=== PATIENT | male | born 1990 | race Caucasian/White ===

== ENCOUNTER 2023-11-11 16:07 | Emergency (ER) | payer SELFPAY ==
--- NOTE | ~2023-11-11 | XR_ITS ---
EXAM: XR forearm RT 2V DATE: 11/11/2023 18:25 HISTORY: pain to the extensor muscles and brachioradialis . COMPARISON: None available. FINDINGS: Normal mineralization. No fracture or dislocation. No lytic or blastic lesion. Joint space s are maintained. No erosion or periosteal change. Loss of the normal muscular fat planes in the fore arm. IMPRESSION: No acute osseous finding in the right forearm. Possible diffuse soft tissue swelling/trell a in the forearm, correlate clinically Reviewed, dictated and finalized at location K. GAGE SERVICING SPECIALIST IMPRESSION: No acute osseous finding in the right forearm. Possible diffuse sof t tissue swelling/edema in the forearm, correlate clinically
[2023-11-11 16:13] VITALS: BP 143/72; PULSE 81; RESP 16; TEMP 36.5; O2SAT 99
--- NOTE | 2023-11-11 18:06 | ED.UPPEXIN ---
HPI - Extremity Injury (Upper) General Chief Complaint: Extremity Injury, Upper Stated Complaint: right arm pain and swelling Time Seen by Provider: 11/11/23 17:57 History of Present Illness HPI narrative: 33-year-old male presents to emergency department for pain and edema to the right forearm x4 days. 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 Patient states 4 days ago while at work, he noticed some discomfort and pain in the area of his forearm and continue to work. Patient states by the end of the day, he has significant worsening pain and swelling that part of the forearm. He has not taken anything for pain. Denies known injury or trauma fever or vomiting. Related Data Allergies Allergy/AdvReac Type Severity Reaction Status Date / Time No Known Allergies Allergy Verified 11/11/23 16:08 Review of Systems Review of Systems: CONSTITUTIONAL: Denies fever, chills, or sweats. EYES: Denies visual changes, redness, or discharge. ENT: Denies rhinorrhea, congestion, sore throat, or otalgia. CARDIOVASCULAR: Denies chest pain, palpitations, or edema. RESPIRATORY: Denies cough or dyspnea. GASTROINTESTINAL: Denies abdominal pain, nausea, vomiting, or diarrhea. GENITOURINARY: Denies dysuria or hematuria. SKIN: Denies rash or itching. MUSCULOSKELETAL: See HPI NEUROLOGIC: Denies headache, numbness, or weakness. PSYCHIATRIC: Denies anxiety or depression. Exam Narrative: GENERAL: Well-appearing, well-nourished, and in no acute distress. HEAD: Normocephalic, atraumatic. NECK: Supple. CHEST: Clear to auscultation. No respiratory distress. HEART: Regular rate and rhythm. No murmur heard. Normal peripheral pulses. EXTREMITIES: Tenderness to the right forearm extensor muscles and overlying the brachioradialis. Mild overlying non pitting focal edema to the dorsal distal radius without erythema, warmth, or crepitus. Compartments are soft. Patient does have full range of motion of wrist and fingers, however extension of the wrist and fingers causes more pain. No tenderness to the distal radius or ulna, carpal bones, fingers, or elbow. SKIN: Warm, dry, no rash. NEURO: No focal deficits. Alert and oriented x3 Course Vital Signs Vital signs: Vital Signs Temperature 97.7 F 11/11/23 16:13 Pulse Rate 81 11/11/23 16:13 Respiratory Rate 16 11/11/23 16:13 Blood Pressure 143/72 H 11/11/23 16:13 Pulse Oximetry 99 11/11/23 16:13 Oxygen Delivery Room Air 11/11/23 16:13 Temperature 98.4 F 11/11/23 19:10 Pulse Rate 77 11/11/23 19:10 Respiratory Rate 18 11/11/23 19:10 Blood Pressure 124/70 11/11/23 19:10 Pulse Oximetry 99 11/11/23 19:10 Oxygen Delivery Room Air 11/11/23 16:13 MDM - Extremity Injury (Upper) MDM Narrative Medical decision making narrative: 33-year-old male presents emergency department for right for pain x4 days. 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 Vital stable. Exam is significant for the above. X-rays of the forearm show no acute osseous finding in the right forearm. Imaging and exam discussed with the patient. I suspect extensor tendinitis. The patient was provided Flexeril, ibuprofen and mahendra wrap. Will send muscle relaxers anti-inflammatories to pharmacy. Encouraged close PCP follow-upFRANKIE. ED return precautions discussed. He is agreeable to plan verbalized understanding. Discharged in stable condition. Discharge Plan Discharge Clinical Impression: Tendinitis Patient Disposition: Home, Self-Care Condition: Stable Instructions: Antibiotic Form, Tendinitis (ED) Additional Instructions: Your evaluated for pain to your right forearm in the emergency department. The x-rays of your arm did not show any bony abnormalities. Your exam is consistent with tendinitis. Please take muscle relaxers and anti-inflammatories as discussed. Rest, ice, elevate and keep your arm compress. Please make sure
[2023-11-11] MEDS: CYCLOBENZAPRINE HCL 10 MG TABLET PO (19:08)
[2023-11-11] MEDS: IBUPROFEN 400 MG TABLET 800 MG PO (19:08)
[2023-11-11 19:10] VITALS: BP 124/70; PULSE 77; RESP 18; TEMP 36.9; O2SAT 99
== END 2023-11-11 19:37 | disposition home or self-care (01) ==
PROVIDERS: Emergency Provider Physician Assistant
DX: M77.8 Other enthesopathies, not elsewhere classified (principal)
CPT/HCPCS: 73090; 99283; A9270

== ENCOUNTER 2024-03-30 18:14 | Emergency (ER) | payer SELFPAY ==
--- NOTE | 2024-03-30 18:36 | ED.URI ---
HPI - URI/Sore Throat General Chief Complaint: Upper Respiratory Infection Stated Complaint: Fever/bodyaches/ Time Seen by Provider: 03/30/24 18:30 Source: patient, family, RN notes reviewed and old records reviewed Mode of arrival: ambulatory Limitations: no limitations History of Present Illness HPI Narrative: 33 year old male presents to [facility] [place] [facility] care with complaints of 102.7F fevers at home prior to arrival, with chills, body aches, shortness of breath,headache, cough since around 1300 today when he was at work. Patient reports that he has had known exposure to COVID from friend on Friday. Patient reports that he has generalized body aches and also has severe headache which he rates as 8/10. Patient reports that he has not taken any medications for his symptoms. MD elicited complaint: cough and sore throat Onset (ago): hour(s) (1300 today) Pain scale (0-10): 8 Able to tolerate fluids by mouth: Yes Treatments prior to arrival: none Related Data Home Medications Medication Instructions Recorded Confirmed No Home Medications 03/30/24 03/30/24 Allergies Allergy/AdvReac Type Severity Reaction Status Date / Time No Known Allergies Allergy Verified 11/11/23 16:08 Review of Systems Review of Systems: CONSTITUTIONAL:Reports malaise, chills, sweats, or fever EYES: Denies visual changes, redness, or discharge. ENT: Reports rhinorrhea, congestion,no sinus pain, no otalgia and no sore throat. CARDIOVASCULAR: Denies chest pain, palpitations, or edema. RESPIRATORY: Reports cough.?Reports dyspnea. GASTROINTESTINAL: Denies abdominal pain, nausea, vomiting, diarrhea SKIN: Denies rash or itching. MUSCULOSKELETAL: Reports myalgia. NEUROLOGIC: Reports headache. All systems reviewed & are unremarkable except as noted in HPI and below PMFSH Past Medical History Medical History (Updated 03/30/24 @ 19:08 by Samia Ball NP) Kidney stone Surgical History Surgical History (Updated 03/30/24 @ 18:47 by Samia Ball NP) H/O eye surgery left as child Social History Social History (Updated 03/30/24 @ 19:01 by Samia Ball NP) Smoking packs per day: 1 Smoking cigarettes per day: 20.0 Years smoked: 23 Smoking pack-years: 23.00 Smoking status: Current every day smoker Alcohol intake: former Alcohol use details: no alcohol for 2 years Substance use: former Substance use type: former substance user and crack/cocaine Last use: none for 2 years Living arrangements: with family Gender identity (if verbalized by the patient): Male Comments At time of signature, agree with nursing past medical, surgical, social and family history. There is no relevant family history pertinent to the presenting complaint Exam Narrative: GENERAL: Ill-appearing, well-nourished, and in no acute distress. HEAD: Normocephalic EYES: PERRLA, conjunctivae clear ENT: Nares clear, turbinates edematous and erythematous, clear discharge. Mucous membranes moist. TM pearly montez with dull light reflex bilaterally; no tragal tenderness. Oropharynx erythematous without lesions. Tonsils not enlarged and without exudate, no drooling, no hoarseness, no trismus, uvula midline. some post nasal drainage NECK: Supple. No lymphadenopathy CHEST: Clear to auscultation, breath sounds equal. No wheezing, rhonchi, rales, or stridor. No respiratory distress, speaks in full sentences.cough noted SAO2 97% on room air no retractions or any tachypnea noted HEART: Regular rate and rhythm. No murmur heard. SKIN: Warm, dry, no rash. NEURO: Alert and oriented x3. PSYCH: Normal mood and affect, anxious Course Course Emergency Course: Patient is aware of diagnosis, understands and agrees to treatment plan.? Anticipatory guidance given.? Patient agrees to follow-up as directed and is aware of reasons to seek care at the emergency department. Portions of this record may have been created with voice rec
[2024-03-30 18:37] VITALS: BP 98/53; PULSE 120; RESP 20; TEMP 38.9; O2SAT 97
[2024-03-30 18:47] VITALS: TEMP 38.9
[2024-03-30] MEDS: IBUPROFEN 600 MG TABLET PO (18:47)
[2024-03-30 19:17] VITALS: TEMP 38.7
== END 2024-03-30 19:17 | disposition home or self-care (01) ==
PROVIDERS: Emergency Provider Registered Nurse
DX: U07.1 COVID-19 (principal); F17.210 Nicotine dependence, cigarettes, uncomplicated
CPT/HCPCS: 87426; 99203; A9270; G0463

== ENCOUNTER 2024-08-05 17:13 | Emergency (ER) | payer SELFPAY ==
--- NOTE | ~2024-08-05 | XR_ITS ---
XR finger 3rd RT min 2V Ordering provider: Matthew Lopez MD History: . INJURY, LACERATION TO 3RD DIGIT AFTER HITTING TV . Comparison: None. FINDINGS: BONES: No definite acute fracture or dislocation. Small bony fragment is seen opposite the proximal i nterphalangeal joint which may be a avulsion fracture although less likely or nonunited sesamoid bone . Clinical correlation for tenderness in the area advised. JOINT SPACES: Normal. SOFT TISSUES: Normal. IMPRESSION: Small bony fragment opposite the proximal interphalangeal joint of the right third finger which may b e a sesamoid bone. Avulsion fracture is less likely. Follow-up advised. Reviewed, dictated and finalized at location A. WEB DEVELOPER IMPRESSION: Small bony fragment opposite the proximal interphalangeal joint of the right th ird finger which may be a sesamoid bone. Avulsion fracture is less likely. Foll ow-up advised.
[2024-08-05 17:19] VITALS: BP 137/79; PULSE 69; RESP 18; TEMP 36.2; O2SAT 100
--- NOTE | 2024-08-05 17:43 | ED.WOUNDLAC ---
HPI - Wound/Laceration General Chief Complaint: Wound/Laceration Stated Complaint: R 3RD FINGER LAC Time Seen by Provider: 08/05/24 17:22 Source: patient Mode of arrival: ambulatory Limitations: no limitations History of Present Illness HPI narrative: This is a 34-year-old male who presents to the ED for chief complaint of laceration to the right 3rd finger after punching a TV today. States that he directly punched his TV today. Denies any further sites of pain or injury. Related Data Home Medications Medication Instructions Recorded Confirmed No Home Medications 03/30/24 03/30/24 Allergies Allergy/AdvReac Type Severity Reaction Status Date / Time No Known Allergies Allergy Verified 11/11/23 16:08 Review of Systems Review of Systems: All systems as dictated in [facility] Past Medical History Medical History (Updated 08/05/24 @ 18:24 by Nathan Aggarwal PA-C) Kidney stone Surgical History Surgical History (Updated 03/30/24 @ 18:47 by Samia Ball NP) H/O eye surgery left as child Social History Social History (Updated 03/30/24 @ 19:01 by Samia Ball NP) Smoking packs per day: 1 Smoking cigarettes per day: 20.0 Years smoked: 23 Smoking pack-years: 23.00 Smoking status: Current every day smoker Alcohol intake: former Alcohol use details: no alcohol for 2 years Substance use: former Substance use type: former substance user and crack/cocaine Last use: none for 2 years Living arrangements: with family Gender identity (if verbalized by the patient): Male Exam Narrative: GENERAL: Well-appearing, well-nourished, and in no acute distress. HEAD: Normocephalic, atraumatic. EYES: PERRLA and EOMI. ENT: Nares clear, no rhinorrhea or epistaxis. Mucous membranes moist. Oropharynx without tonsillar hypertrophy exudate or other lesions. NECK: Supple. No adenopathy or masses. CHEST: No respiratory distress. Clear to auscultation. No wheezes rales or rhonchi HEART: Regular rate and rhythm. No murmur heard. Normal peripheral pulses. ABDOMEN: Soft, nontender, nondistended, normal active bowel sounds. MSK: Normal range of motion. No edema. SKIN: 1.5 cm curved abrasion to the dorsal right 3rd digit. No active bleeding NEURO: Alert and oriented x4. No focal deficits. PSYCH: Normal mood and affect. Course Vital Signs Vital signs: Vital Signs Temperature 97.1 F L 08/05/24 17:19 Pulse Rate 69 08/05/24 17:19 Respiratory Rate 18 08/05/24 17:19 Blood Pressure 137/79 08/05/24 17:19 Pulse Oximetry 100 08/05/24 17:19 Oxygen Delivery Room Air 08/05/24 17:19 Temperature 97.1 F L 08/05/24 17:19 Pulse Rate 69 08/05/24 17:19 Respiratory Rate 18 08/05/24 17:19 Blood Pressure 137/79 08/05/24 17:19 Pulse Oximetry 100 08/05/24 17:19 Oxygen Delivery Room Air 08/05/24 17:19 Procedures Laceration Laceration 1: Date: 08/05/24 Time: 18:20 Site: hand Side (If applicable): right Size (cm): 1.5 Description: irregular Depth: simple, single layer Local Anesthetic: none Pre-repair: wound explored and irrigated extensively ====== Skin Level ====== Skin layer closed with: dermabond and steri strips ====== Subcutaneous Layer ====== ====== Muscle Layer ====== ====== Tendon Layer ====== MDM - Wound/Laceration MDM Narrative Medical decision making narrative: This is a 34-year-old male who presents to the ED for chief complaint of punching a TV and having a laceration. Vitals are normal. Exam shows 1.5 cm superficial curved avulsion to the dorsal right 3rd digit. X-ray right hand: IMPRESSION: Small bony fragment opposite the proximal interphalangeal joint of the right third finger which may be a sesamoid bone. Avulsion fracture is less likely. Follow-up advised. Feel that this finding on x-ray is probably old/nontraumatic due to mechanism and exam. Patient's Tdap was updated. He was given finger splint for comfort after the wound was repaired with Dermabond and 1 Steri-Strip. Patient will be discharged in stable condition. Supportive measures discussed and return precautions given. Patient is understanding and agreeable with plan for discharge with PCP follow-up. Discharge Plan Discharge Clinical Impression: Laceration Patient Disposition: Home, Self-Care Condition: Stable Instructions: Antibiotic Form, Laceration (ED) Additional Instructions: Your exam and imaging today are reassuring. The Steri-Strips should come off after about 5 days. If you have any new or worsening symptoms please return to the ER for further evaluation. Prescriptions: No Action No Home Medications Follow-up/Referrals: PHYSICIAN,ADMINISTRATIVE ASSISTANT DATA ENTRY [Primary Care Provider] - Time of Disposition: 18:24
[2024-08-05] MEDS: TETANUS,DIPHTHERIA,AC PERTUSSIS ADULT (0.5 ML) BOOSTRIX IM (18:48)
== END 2024-08-05 18:55 | disposition home or self-care (01) ==
PROVIDERS: Emergency Provider Physician Assistant
DX: S61.212A Laceration without foreign body of right middle finger without damage to nail, initial encounter (principal); Z23 Encounter for immunization; F17.210 Nicotine dependence, cigarettes, uncomplicated; Z87.442 Personal history of urinary calculi; W22.8XXA Striking against or struck by other objects, initial encounter
CPT/HCPCS: 12001; 73140; 90471; 90715; 99283

== ENCOUNTER 2025-01-11 10:02 | Emergency (ER) | payer SELFPAY ==
--- NOTE | ~2025-01-11 | XR_ITS ---
XR knee LT min 4V Ordering provider: Wilbur Hdz III, DO History: . L knee injury/pain, popping unable to fully extend knee . Comparison: None. FINDINGS: BONES: No acute fracture or dislocation. JOINT SPACES: Normal. SOFT TISSUES: Normal. IMPRESSION: No acute osseous abnormality left knee. Reviewed, dictated and finalized at location A.
[2025-01-11 10:04] VITALS: BP 134/74; PULSE 114; RESP 20; TEMP 36.3; O2SAT 100
[2025-01-11] MEDS: CYCLOBENZAPRINE HCL 10 MG TABLET PO (12:00)
[2025-01-11] MEDS: KETOROLAC 30 MG/ML VIAL (*BKC) IM (12:00)
[2025-01-11] MEDS: HYDROcodone/acetaminophen (*CRX) 5-325 MG TABLET 1 TAB PO (12:00)
--- NOTE | 2025-01-11 12:05 | ED_ITS ---
HPI - General Adult General Chief complaint: Extremity Injury, Lower Stated complaint: right knee Time Seen by Provider: 01/11/25 11:32 History of Present Illness HPI narrative: Niko Laughlin is a 34-year-old male who presents today with complaints of twisting his left knee and word today around 9:30 a.m.. He states that the pain was a lot worse when he 1st today and now it has gotten a little bit better. But range of motion does cause increased pain. Related Data Allergies Allergy/AdvReac Type Severity Reaction Status Date / Time No Known Allergies Allergy Verified 01/11/25 10:08 Review of Systems Review of Systems: All systems reviewed & are unremarkable except as noted in HPI and below PMFSH Past Medical History Medical History Kidney stone Surgical History Surgical History H/O eye surgery left as child Social History Social History Smoking packs per day: 1 Smoking cigarettes per day: 20.0 Years smoked: 23 Smoking pack-years: 23.00 Smoking status: Current every day smoker Alcohol intake: former Alcohol use details: no alcohol for 2 years Substance use: former Substance use type: former substance user and crack/cocaine Last use: none for 2 years Living arrangements: with family Gender identity (if verbalized by the patient): Male Exam Narrative: GENERAL: Well-appearing, well-nourished, and in no acute distress. HEAD: Normocephalic, atraumatic. EYES: PERRLA and EOMI. ENT: Nares clear, no rhinorrhea or epistaxis. Mucous membranes moist. Oropharynx without tonsillar hypertrophy exudate or other lesions. NECK: Supple. No adenopathy or masses. No carotid bruits or JVD CHEST: Clear to auscultation. No respiratory distress. No wheezes rales or rhonchi HEART: Regular rate and rhythm. No murmur heard. Normal peripheral pulses. ABDOMEN: Soft, nontender, nondistended, normal active bowel sounds. EXTREMITIES: Normal range of motion. No edema.-neurovascular intact SKIN: Warm, dry, no rash. NEURO: No focal deficits. Alert and oriented x3. PSYCH: Normal mood and affect. Course Vital Signs Vital signs: Vital Signs Temperature 36.3 C L 01/11/25 10:04 Pulse Rate 114 H 01/11/25 10:04 Respiratory Rate 01/11/25 10:04 Blood Pressure 134/74 01/11/25 10:04 Pulse Oximetry 100 01/11/25 10:04 Oxygen Delivery Room Air 01/11/25 10:04 Temperature 36.3 C L 01/11/25 10:04 Pulse Rate 114 H 01/11/25 10:04 Respiratory Rate 01/11/25 10:04 Blood Pressure 134/74 01/11/25 10:04 Pulse Oximetry 100 01/11/25 10:04 Oxygen Delivery Room Air 01/11/25 10:04 Medical Decision Making MDM Narrative Medical decision making narrative: 34-year-old male with complaints of left knee pain after an inward twisting and 930 this morning. He states his pain was worse earlier and has improved some he is not taking anything for pain prior to arrival. Exam is not impressive for any swelling, erythema, ecchymosis, obvious deformity. Range of motion intact although does cause increased pain neurovascular intact Plan to check x-ray and treat his pain with hydrocodone, Flexeril and Toradol shot X-ray results no acute osseous abnormality Planned to wrap with Olayinka wrapping continue naproxen and Flexeril at home with PCP follow-up and orthopedic referral as needed. Medical Records Medical records reviewed: Yes I reviewed the external patient's medical records. Vital Signs Vital Signs: Vital Signs Temperature 36.3 C L 01/11/25 10:04 Pulse Rate 114 H 01/11/25 10:04 Respiratory Rate 01/11/25 10:04 Blood Pressure 134/74 01/11/25 10:04 Pulse Oximetry 100 01/11/25 10:04 Oxygen Delivery Room Air 01/11/25 10:04 Temperature 36.3 C L 01/11/25 10:04 Pulse Rate 114 H 01/11/25 10:04 Respiratory Rate 01/11/25 10:04 Blood Pressure 134/74 01/11/25 10:04 Pulse Oximetry 100 01/11/25 10:04 Oxygen Delivery Room Air 01/11/25 10:04 Vitals reviewed by me Imaging Data Radiologist's impression: Impressions Knee X-Ray 01/11/25 10:38 IMPRESSION: No acute osseous abnormality left knee. Discharge Plan Discharge Clinical Impression: Left knee pain Qualifiers: Chronicity: acute Qualified Code(s): M25.562 - Pain in left knee Patient Disposition: Home Condition: Stable Instructions: Antibiotic Form Additional Instructions: Continue to take the naproxen twice daily for pain You may also take the cyclobenzaprine for severe pain this also may make you sleepy do not drive or operate machinery while taking this medication Continue to wear Olayinka wrap to help support your knee while it heals Rest ice and elevate for pain control Follow-up with your primary care doctor in 1 week to ensure this is improving You may also follow-up with orthopedic as listed if you continue to have pain after 2 weeks If you develop any worsening symptoms or concerns return to the ER> Patient Language: Kiswahili Prescriptions: New naproxen 500 mg tablet 500 mg PO BID PRN (Reason: pain) Qty: 20 0RF cyclobenzaprine 10 mg tablet 10 mg PO TID PRN (Reason: muscle spasm) Qty: 30 0RF Follow-up/Referrals: Arnaldo Carias MD [Physician] - 1 Week Leo Marquez MD [Physician] - 2 Weeks UNKNOWN,DOCTOR [Primary Care Provider] - Stand Alone Forms: Work/School Release IP Time of Disposition: 12:10
== END 2025-01-11 12:17 | disposition home or self-care (01) ==
PROVIDERS: Emergency Provider Nurse Practitioner Family
DX: M25.562 Pain in left knee (principal); F17.210 Nicotine dependence, cigarettes, uncomplicated; Z87.442 Personal history of urinary calculi
CPT/HCPCS: 73564; 96372; 99283; A9270; J1885

== ENCOUNTER 2025-05-25 15:24 | Emergency (ER) | payer SELFPAY ==
--- NOTE | ~2025-05-25 | CT_ITS ---
EXAMINATION: CT abdomen pelvis wo pancho, 05/25/2025 15:55 CDT HISTORY: right flank pain r/o stone COMPARISON: No comparisons available. TECHNIQUE: CT scan of the abdomen and pelvis was performed without IV contrast. One or more of the following dose reduction techniques were used: automated exposure control, adjustment of the mA and/or kV according to patient size, use of iterative reconstruction technique. Unless otherwise stated, incidental findings do not require dedicated follow up imaging FINDINGS: CT abdomen: LUNG BASES: The lung bases are clear. The visualized portions of the heart and pericardium are unremarkable. LIVER: Unremarkable, liver contours intact, no lesions. SPLEEN: Unremarkable, no splenomegaly. KIDNEYS: Right Kidney: Right kidney 2 mm renal calculi, no hydronephrosis or hydroureter. Left Kidney: Left kidney 2 mm renal calculi, no hydronephrosis or hydroureter. ADRENAL GLANDS: Unremarkable. PANCREAS: Unremarkable. GALLBLADDER/BILIARY: Unremarkable. No biliary dilatation. STOMACH AND ESOPHAGUS: Visualized stomach and esophagus within normal limits. BOWEL/MESENTERY: Moderate fecal content, no colitis or diverticulitis. Appendix appears small. Mesentery normal. No dilated small bowel loops. ADENOPATHY/RETROPERITONEUM: No lymphadenopathy. AORTA/VASCULATURE: Normal caliber aorta. FREE FLUID OR FREE AIR: No free fluid.. CT pelvis: SOLID ORGANS/REPRODUCTIVE: Prostate enlarged, correlate PSA. BLADDER: Within normal limits. OSSEOUS STRUCTURES: No acute osseous abnormality.No suspicious lesions. OVERLYING SOFT TISSUES: Unremarkable. IMPRESSION: 1. Bilateral renal calculi. No hydronephrosis or hydroureter Reviewed, dictated and finalized at location A.
[2025-05-25 15:38] VITALS: BP 129/85; PULSE 83; RESP 16; TEMP 36.7; O2SAT 98
--- NOTE | 2025-05-25 15:43 | ED.MALEGU ---
HPI - Male Genitourinary General Chief complaint: Urogenital-Male Stated complaint: flank pain Time Seen by Provider: 05/25/25 15:41 Source: patient Mode of arrival: ambulatory Limitations: no limitations History of Present Illness HPI Narrative: Niko is a 35-year-old male patient presenting to the clinic today with complaints of right-sided flank pain x4 days. He reports symptoms come and go. Rates pain currently a 3/10 but states it is 9/10 it is worse. Has not taken any medications for symptoms. Denies any blood in his urine. States he is having a weaker stream than normal. History of kidney stones. No fevers, chills, body aches. Related Data Allergies Allergy/AdvReac Type Severity Reaction Status Date / Time No Known Allergies Allergy Verified 01/11/25 10:08 Review of Systems Review of Systems: Pertinent positives per HPI. Patient denies any fever, chills, rash, headache, visual changes, dizziness, cough, runny nose, sore throat, shortness of breath, chest pain, palpitations, nausea, vomiting, diarrhea, constipation, abdominal pain, or any urinary issues. [facility]LY [facility] Past Medical History Medical History Kidney stone Surgical History Surgical History H/O eye surgery left as child Social History Social History Smoking packs per day: 1 Smoking cigarettes per day: 20.0 Years smoked: 23 Smoking pack-years: 23.00 Smoking status: Current every day smoker Alcohol intake: former Alcohol use details: no alcohol for 2 years Substance use: former Substance use type: former substance user and crack/cocaine Last use: none for 2 years Living arrangements: with family Gender identity (if verbalized by the patient): Male Comments At the time of my signature, I reviewed and agree with the nursing past medical, surgical, social, and family history. There is no relevant family history pertinent to the patient complaint. Exam Narrative: General: Well-developed, well nourished, in no apparent distress. Head: Normocephalic, atraumatic. Cardio: Regular rate and rhythm, s1 and s2 normal, no murmur appreciated. Resp: Clear to auscultation bilaterally, no rhonchi, rales, wheezing or rubs. Abdomen: Soft, pliable, bowel sounds present in all quadrants, non-tender to palpation, no organomegly, right CVAT tenderness. Course Course Emergency Course: Portions of this record may have been created with voice recognition software. Vital Signs Vital signs: Vital Signs Temperature 36.7 C 05/25/25 15:38 Pulse Rate 83 05/25/25 15:38 Respiratory Rate 16 05/25/25 15:38 Blood Pressure 129/85 05/25/25 15:38 Pulse Oximetry 98 05/25/25 15:38 Oxygen Delivery Room Air 05/25/25 15:38 Temperature 36.7 C 05/25/25 15:38 Pulse Rate 83 05/25/25 15:38 Respiratory Rate 16 05/25/25 15:38 Blood Pressure 129/85 05/25/25 15:38 Pulse Oximetry 98 05/25/25 15:38 Oxygen Delivery Room Air 05/25/25 15:38 Vital signs reviewed MDM - Male Genitourinary MDM Narrative Medical decision making narrative: At the time of visit patient is resting comfortably on the exam table. Patient appears to be nontoxic. complaints of right-sided flank pain x4 days. He reports symptoms come and go. Rates pain currently a 3/10 but states it is 9/10 it is worse. Has not taken any medications for symptoms. Denies any blood in his urine. States he is having a weaker stream than normal. History of kidney stones. No fevers, chills, body aches. On exam patient has right CVAT tenderness. Abdominal tenderness. Labs: Urine, and CT abdomen/pelvis stone protocol. Labs: CBC, CMP, and urinalysis unremarkable Diagnostics: CT abdomen/pelvis rule out stone. Shows moderate amount of stool in the colon. Bilateral kidney stones without hydronephrosis or hydroureter Plan: Patient has acute right flank pain, constipation, and bilateral kidney stones. Increase fluids and increase fiber in diet. May take naproxen/Tylenol as needed for pain. Prescription for MiraLax and naproxen was sent to the pharmacy. Supportive measures were discussed with the patient and they voiced understanding discharge instructions and agrees to treatment plan. Return precautions reviewed Differential Diagnosis Differential diagnosis: Likely urinary tract infection and other (Kidney stones, flank pain, pyelonephritis,) Lab Data 05/25/25 15:49 05/25/25 15:49 Labs: Lab Results 05/25/25 05/25/25 Range/Units 15:49 16:55 WBC 6.4 (4.5-10.0) K/mm3 RBC 4.98 (4.6-6.20) M/mm3 Hgb 14.9 (14.0-18.0) g/dL Hct 46.2 (42.0-52.0) % MCV 92.8 (80-100) fl MCH 29.9 (26-34) pg MCHC 32.3 (32-36) g/dl RDW 12.9 (11.5-14.5) % Plt Count 229 (150-375) k/mm3 MPV 9.3 (7.4-10.4) fl Immature Gran % (Auto) 0.3 (0-0.5) % Neut % (Auto) 66.1 (45.5-73.1) % Lymph % (Auto) 27.4 (18.3-44.2) % [place] % (Auto) 4.7 (2.6-8.5) % Eos % (Auto) 1.2 (0-4.4) % Baso % (Auto) 0.3 (0.2-1.2) % Lymph # (Auto) 1.76 (0.9-3.2) K/mm3 [place] # (Auto) 0.3 (0.1-0.6) K/mm3 Eos # (Auto) 0.1 (0-0.3) K/mm3 Baso # (Auto) 0.0 (0.0-0.1) K/mm3 Abs Immat Gran (auto) 0.02 (0.00-0.031) K/mm3 Absolute Neuts (auto) 4.2 (1.3-6.7) K/mm3 Absolute Nucleated RBC 0.000 (0.0-0.012) K/mm3 Nucleated RBC % 0.0 (0.0-0.2) % Sodium 137 (137-145) mmol/L Potassium 4.2 (3.4-5.0) mmol/L Chloride 104 (98-107) mmol/L Carbon Dioxide 28 (22-30) mmol/L Anion Gap 5 (4-12) mmol/L BUN 15 (9-20) mg/dL Creatinine 0.73 (0.7-1.3) mg/dL Estim Creat Clear Calc 101 ml/min Estimated GFR > 60 (59 - ) Glucose 94 (65-110) mg/dL Calcium 9.3 (8.4-10.2) mg/dL Total Bilirubin 0.4 (0.2-1.3) mg/dL AST 20 (17-59) U/L ALT 12 (6-50) U/L Alkaline Phosphatase 83 (38-126) U/L Total Protein 7.8 (6.3-8.2) g/dL Albumin 4.3 (3.5-5.1) g/dL Urine Color Yellow (Yellow) Urine Appearance Clear (Clear) Urine pH 7.5 (5.0-9.0) Ur Specific [place] 1.017 (1.001-1.035) Urine Protein Negative (Negative) mg/dL Urine Glucose (UA) Negative (Negative) mg/dL Urine Ketones Negative (Negative) mg/dL Ur Blood (Man) Negative (Negative) Urine Nitrate Negative (Negative) Urine Bilirubin Negative (Negative) Urine Urobilinogen 0.2 (<2.0) mg/dL Leukocyte Esterase Rfl Negative (Negative) JOSY/UL Imaging Data Radiologist's impression: ITS Impressions Abdomen/Pelvis CT 05/25/25 16:04 IMPRESSION: 1. Bilateral renal calculi. No hydronephrosis or hydroureter Discharge Plan Discharge Clinical Impression: Acute right flank pain, Bilateral kidney stones Constipation Qualifiers: Constipation type: unspecified constipation type Qualified Code(s): K59.00 - Constipation, unspecified Patient Disposition: Home Condition: Stable Instructions: Antibiotic Form, Constipation (ED), Kidney Stones (ED), Flank Pain (ED) Additional Instructions: CT shows bilateral kidney stones and moderate constipation Lab work and urinalysis is normal Increase fluids and fiber in your diet Take any prescription medication only as prescribed-MiraLax and naproxen May use heat or ice to the affected area May use blue emu, lidocaine patches, or asper cream to affected area- do not apply heat or ice directly over cream- can cause burn. Follow up with your PCP in 3-5 days if symptom persist. Patient Language: Chadian Prescriptions: New polyethylene glycol 3350 [ClearLax] 17 gram powder in packet 17 g PO DAILY 30 Days Qty: 30 0RF naproxen 500 mg tablet 500 mg PO BID PRN (Reason: pain) 7 Days Qty: 14 0RF No Action naproxen 500 mg tablet 500 mg PO BID PRN (Reason: pain) Qty: 20 0RF cyclobenzaprine 10 mg tablet 10 mg PO TID PRN (Reason: muscle spasm) Qty: 30 0RF Follow-up/Referrals: PHYSICIAN,ELECTRICAL EQUIPMENT ASSEMBLER [Primary Care Provider, Internal Medicine] Time of Disposition: 17:11 Quality NIHSS Nursing Documentation ED NIHSS nursing documentation: reviewed/agree
[2025-05-25 16:07] LABS: Hematocrit 46.2 % (42.0-52.0); Hemoglobin 14.9 g/dL (14.0-18.0); Immature Granulocyte Percent A 0.3 % (0-0.5); Lymphocytes Absolute Auto 1.76 K/mm3 (0.9-3.2); Mean Corpuscular HGB Conc 32.3 g/dl (32-36); Mean Corpuscular Hemoglobin 29.9 pg (26-34); Mean Corpuscular Volume 92.8 fl (80-100); Nucleated Red Blood Cells Absolute Auto 0.000 K/mm3 (0.0-0.012); Nucleated Red Blood Cells Perc 0.0 % (0.0-0.2); Platelet Count Result 229 k/mm3 (150-375); Red Blood Count 4.98 M/mm3 (4.6-6.20); White Blood Count 6.4 K/mm3 (4.5-10.0)
[2025-05-25] MEDS: MORPHINE SULFATE (*CRX) 4 MG/ML INJ IV PUSH (16:12)
[2025-05-25] MEDS: SODIUM CHLORIDE 0.9% IV 1,000 ML 999 ML IV CONT (16:12)
[2025-05-25] MEDS: ONDANSETRON INJ 4 MG/2 ML VIAL IV PUSH (16:12)
[2025-05-25 16:14] LABS: Alanine Aminotransferase 12 U/L (6-50); Albumin Level 4.3 g/dL (3.5-5.1); Alkaline Phosphatase 83 U/L (38-126); Anion Gap 5 mmol/L (4-12); Aspartate Amino Transferase 20 U/L (17-59); Bilirubin,Total 0.4 mg/dL (0.2-1.3); Blood Urea Nitrogen 15 mg/dL (9-20); Calcium 9.3 mg/dL (8.4-10.2); Carbon Dioxide 28 mmol/L (22-30); Chloride 104 mmol/L (98-107); Estimated CRCL calculation 101 ml/min; Estimated Glomerular Filt Rate > 60; Glucose 94 mg/dL (65-110); Potassium 4.2 mmol/L (3.4-5.0); Sodium 137 mmol/L (137-145); Total Protein 7.8 g/dL (6.3-8.2)
--- OUTSIDE RECORDS SUMMARY | 2025-05-25 16:29 | XMS_ITS ---
Author Organization Unknown ENCOUNTERS Encounter Performer Location Date Diagnosis Diagnosis Status [facility] [address] [place] [address] [id number] Emergency [facility] [address] [place] [address] [id number] Emergency [facility] [address] [place] [address] [id number] FREDY Pre Admit [facility] [address] [place] [address] [id number] Emergency [facility] [address] [place] [address] [id number] FREDY Pre Admit [facility] [address] [place] [address] [id number] Emergency [facility] [address] [place] [address] [id number] FREDY Pre Admit [facility] [address] [place] [address] [id number] *Note: Encounters from your own facility or health system may be excluded. Allergies, Adverse Reactions, Alerts Allergen Type Severity Identification Date Medications Name Date Quantity Days Supplied [facility] Number
[2025-05-25 17:01] LABS: Add Urine Microscopic? NO; Appearance Urine Clear (Clear); Glucose Urine UA Negative (Negative); Leukocyte Esterase Ur Negative LEU/UL (Negative); Nitrate Urine Negative (Negative); Specific Grav Ur 1.017 (1.001-1.035)
[2025-05-25] MEDS: KETOROLAC 30 MG/ML VIAL (*BKC) IV PUSH (17:18)
== END 2025-05-25 17:25 | disposition home or self-care (01) ==
PROVIDERS: Emergency Medicine; Emergency Provider Nurse Practitioner Family
DX: N20.0 Calculus of kidney (principal); K59.00 Constipation, unspecified; F17.210 Nicotine dependence, cigarettes, uncomplicated
CPT/HCPCS: 36415; 74176; 80053; 81003; 85025; 96361; 96374; 96375; 99284; J1885; J2270; J2405; J7030